=== PATIENT | female | born 1960 | race Caucasian/White ===

== ENCOUNTER 2022-04-10 21:05 | Emergency (ER) | payer MEDICAID ==
[~2022-04-10] VITALS: Ht 170.2 cm; Wt 128.2 kg
[2022-04-10 21:33] VITALS: BP 148/80
[2022-04-10] MEDS ORDERED: silver sulfadiazine cream 50gm TP ONE (23:15)
[2022-04-10] MEDS ORDERED: HYDR-3965 PO (23:21)
== END 2022-04-10 23:28 | disposition home or self-care (01) ==
LOC: ER 21:06
DX: T23.162A Burn of first degree of back of left hand, initial encounter (principal); T21.22XA Burn of second degree of abdominal wall, initial encounter; Z88.0 Allergy status to penicillin; Z88.2 Allergy status to sulfonamides; X12.XXXA Contact with other hot fluids, initial encounter; Y93.89 Activity, other specified; Y92.89 Other specified places as the place of occurrence of the external cause; Y99.8 Other external cause status
CPT/HCPCS: 16000; 99283

== ENCOUNTER 2023-10-02 08:32 | Emergency (ER) | payer MEDICAID ==
[~2023-10-02] VITALS: Ht 165.1 cm; Wt 125.6 kg
[2023-10-02] MEDS ORDERED: ketorolac trometh inj. 60 MG/2 ML VIAL IM ONE (09:15)
[2023-10-02] MEDS: ketorolac trometh. 30mg/ml inj. IM ONE (09:22)
[2023-10-02 09:44] LABS: BASOPHILS # (AUTO) 0.1 X10'3 (0-0.2); EOSINOPHILS # (AUTO) 0.3 X10'3 (0-0.9); HEMATOCRIT 38.5 % (35.0-45.0); HEMOGLOBIN 12.6 g/dl (12.0-16.0); LYMPHOCYTES # (AUTO) 2.2 X10'3 (1.1-4.8); MEAN CORPUSCULAR HEMOGLOBIN 24.3 PG (27.0-31.0); MEAN CORPUSCULAR HGB CONC 32.8 g/dL (33.0-36.5); MEAN CORPUSCULAR VOLUME 74.1 FL (78-98); MEAN PLATELET VOLUME 8.1 FL (7.4-10.4); MONOCYTES % (AUTO) 9.7 % (2-12); NEUTROPHILS # (AUTO) 6.5 X10'3 (1.8-7.7); NEUTROPHILS % (AUTO) 64.3 % (42-75); PLATELET COUNT 288 X10'3 (140-440); RED CELL DISTRIBUTION WIDTH 15.7 % (11.5-14.5); WHITE BLOOD COUNT 10.2 X10'3 (4.5-11.0)
[2023-10-02 10:01] LABS: ALBUMIN 3.2 G/DL (3.4-5.0); ANION GAP 10 (8-16); BLOOD UREA NITROGEN 13 MG/DL (7-18); BUN/CREATININE RATIO 15.9 (10.0-20.0); CALCIUM 8.9 MG/DL (8.5-10.1); CHLORIDE 103 MMOL/L (99-107); CREATININE 0.82 MG/DL (0.40-0.90); GLUCOSE 159 MG/DL (70-104); MAGNESIUM 1.9 MG/DL (1.5-2.4); POTASSIUM 3.6 MMOL/L (3.5-5.1); PRO BRAIN NATRIURETIC PEPTIDE 88 PG/ML (0-125); SODIUM 140 MMOL/L (135-145); TOTAL CARBON DIOXIDE 27.4 MMOL/L (24-32); eCRCL 65 ML/MIN; eGFR 71 ML/MIN
[2023-10-02 10:05] LABS: PROTHROMBIN TIME 10.7 SECONDS (9.0-12.0)
[2023-10-02 10:18] LABS: APTT 27 SECONDS (22-32)
[2023-10-02 11:21] VITALS: PULSE 98
[2023-10-02 11:26] VITALS: RESP 16
[2023-10-02] MEDS ORDERED: NAPR-56 PO (11:40)
[2023-10-02] MEDS ORDERED: METH-798 PO (11:40)
[2023-10-02 11:51] VITALS: BP 154/87; TEMP 98.5; O2SAT 98
== END 2023-10-02 11:53 | disposition home or self-care (01) ==
LOC: ER 08:32
DX: M25.512 Pain in left shoulder (principal); Z88.2 Allergy status to sulfonamides; Z88.0 Allergy status to penicillin; Z79.899 Other long term (current) drug therapy
CPT/HCPCS: 36415; 71045; 73030; 80048; 83735; 83880; 84484; 85025; 85610; 85730; 93005; 96372; 99285; J1885

== ENCOUNTER 2024-04-18 16:34 | Emergency (ER) | payer MEDICAID ==
[~2024-04-18] VITALS: Ht 170.2 cm; Wt 126.3 kg
[~2024-04-18 16:34] MED LIST: METH-798 PO
[2024-04-18 17:48] VITALS: BP 113/72; PULSE 90; RESP 18; O2SAT 98
[2024-04-18] MEDS: TETanus/Pertussis (Acell)/Diphther VAC/PF (Tdap-Adult) 0.5ml syringe IMVAC ONE (17:50)
[2024-04-18] MEDS: LIDOcaine 1% 30ml preserv. free vial IJ STA (17:58)
[2024-04-18 18:21] VITALS: TEMP 97.6
== END 2024-04-18 18:22 | disposition home or self-care (01) ==
LOC: ER 16:35
DX: S51.812A Laceration without foreign body of left forearm, initial encounter (principal); Z88.8 Allergy status to other drugs, medicaments and biological substances; Z88.0 Allergy status to penicillin; Z79.899 Other long term (current) drug therapy; X58.XXXA Exposure to other specified factors, initial encounter; Y93.89 Activity, other specified; Y92.89 Other specified places as the place of occurrence of the external cause; Y99.8 Other external cause status
CPT/HCPCS: 12001; 90471; 90715; 99283; J3490; A6258; A6449